=== PATIENT | female | born 1965 | race Two or more races ===

== ENCOUNTER 2019-06-09 19:37 | Emergency (ER) | payer OTHER ==
[~2019-06-09] VITALS: Ht 167.6 cm; Wt 90.7 kg
[2019-06-09] MEDS ORDERED: LORazepam 2MG/ML-1ML VIAL IV ONE (22:00)
[2019-06-09 22:18] LABS: Basophils # (auto) 0 uL; Basophils % (auto) 0.2 % (0.0-2.0); Eosinophils # (auto) 0 uL; Eosinophils % (auto) 0.2 % (0.0-7.0); Hematocrit 40.5 % (36.0-46.0); Hemoglobin 13.7 g/dL (12.2-16.2); Lymphocytes # (auto) 0.6 uL; Lymphocytes % (auto) 10.3 % (10.0-50.0); Mean Corpuscular Hemoglobin 27.8 pg (28.0-32.0); Mean Corpuscular Hgb Conc. 33.7 g/dL (32.0-36.0); Mean Corpuscular Volume 82.5 fL (80.0-100.0); Monocytes # (auto) 0.6 uL; Monocytes % (auto) 9.5 % (0.0-12.0); Neutrophils # (auto) 4.9 uL; Neutrophils % (auto) 79.8 % (37.0-80.0); Nucleated Red Blood Cells % 0.1 %; Platelet Count (auto) 242 10^3/uL (140-450); Red Blood Cells 4.91 10^6/uL (4.0-5.20); Red Cell Distribution Width 13.5 % (11.8-14.3); White Blood Cell 6.1 10^3/uL (4.4-10.8)
[2019-06-09 22:35] LABS: INR 1.13 (0.9-1.15); Partial Thromboplastin Time 30.2 sec (23.64-32.05)
[2019-06-09 22:38] LABS: Chloride 106 mmol/L (98-107); Potassium 3.8 mmol/L (3.5-5.1); Sodium 137 mmol/L (136-145)
[2019-06-09 22:48] LABS: Alanine Aminotransferase 62 U/L (13-56); Albumin 4.1 g/dL (3.4-5.0); Alkaline Phosphatase 99 U/L (45-117); Anion Gap 6 (5-15); Aspartate Aminotransferase 47 U/L (15-37); BUN/Creatinine Ratio 20.7; Bilirubin, Total 0.4 mg/dL (0.2-1.0); Blood Urea Nitrogen 18 mg/dL (7-18); Calcium 9.4 mg/dL (8.5-10.1); Carbon Dioxide 25 mmol/L (21-32); GFR African American 88 mL/min; GFR Non-African American 72 mL/min; Glucose 107 mg/dL (74-106); Magnesium 2.4 mg/dL (1.6-2.6); Total Protein 7.9 g/dL (6.4-8.2)
[2019-06-09] MEDS ORDERED: IOHEXOL 350 MG/ML 100ML IJ ONE (23:14)
[2019-06-09] MEDS ORDERED: ONDANSETRON HCL 4 MG/2 ML VIAL IV ONE (23:15)
[2019-06-09] MEDS ORDERED: MORPHINE SULFATE 4 MG/ML SYR/VIAL IV ONE (23:15)
[2019-06-09 23:54] LABS: Urine Bacteria FEW /hpf (None Seen); Urine Blood TRACE /uL (Negative); Urine Specific Gravity 1.011 (1.001-1.035); Urine WBC 1 /hpf (0 - 5)
[2019-06-10 02:30] VITALS: BP 149/73
== END 2019-06-10 02:49 | disposition home or self-care (01) ==
LOC: ER 19:40
DX: R07.89 Other chest pain (principal); K21.9 Gastro-esophageal reflux disease without esophagitis; R42 Dizziness and giddiness; R51 Headache; G89.4 Chronic pain syndrome; R79.1 Abnormal coagulation profile; Z90.710 Acquired absence of both cervix and uterus
CPT/HCPCS: 36415; 70450; 71046; 71275; 80053; 81001; 83735; 83880; 84443; 84484; 85025; 85379; 85610; 85730; 93005; 96374; 96375; 99284; J2060; J2270; J2405; Q9967

== ENCOUNTER → 2019-07-23 | Outpatient (CLI) | payer OTHER ==
[~2019-07-23] MED LIST: AML5T PO; FAM20T PO
== END | disposition home or self-care (01) ==
LOC: LAB 07:23
PROVIDERS: ATTEND Internal Medicine Nephrology
DX: R00.1 Bradycardia, unspecified (principal); R55 Syncope and collapse
CPT/HCPCS: 36415; 82565; 84520

== ENCOUNTER → 2019-12-19 | Outpatient (CLI) | payer OTHER ==
[~2019-12-19] MED LIST changes: -FAM20T PO; +FAMO20TA10 PO
[2019-12-19 08:19] LABS: Basophils # (auto) 0 10 ^3/uL (0-0.2); Basophils % (auto) 0.6 % (0.0-2.0); Eosinophils # (auto) 0.1 10 ^3/uL (0-0.8); Eosinophils % (auto) 1.5 % (0.0-7.0); Hemoglobin 13.2 g/dL (12.2-16.2); Lymphocytes # (auto) 2.3 10 ^3/uL (0.4-5.4); Lymphocytes % (auto) 38.2 % (10.0-50.0); Mean Corpuscular Hemoglobin 27.3 pg (28.0-32.0); Mean Corpuscular Hgb Conc. 32.9 g/dL (32.0-36.0); Mean Corpuscular Volume 83.1 fL (80.0-100.0); Monocytes # (auto) 0.4 10 ^3/uL (0-1.3); Neutrophils # (auto) 3.2 10 ^3/uL (1.6-8.6); Neutrophils % (auto) 52.7 % (37.0-80.0); Platelet Count (auto) 258 10^3/uL (140-450); Red Blood Cells 4.82 10^6/uL (4.0-5.20); Red Cell Distribution Width 13.7 % (11.8-14.3); White Blood Cell 6.1 10^3/uL (4.4-10.8)
[2019-12-19 08:40] LABS: Albumin 3.9 g/dL (3.4-5.0); Potassium 4.1 mmol/L (3.5-5.1)
[2019-12-19 08:47] LABS: BUN/Creatinine Ratio 18.6; Bilirubin, Total 0.6 mg/dL (0.2-1.0); Total Protein 7.4 g/dL (6.4-8.2)
== END | disposition home or self-care (01) ==
LOC: LAB 07:48
PROVIDERS: ATTEND Internal Medicine Nephrology
DX: E04.1 Nontoxic single thyroid nodule (principal); I10 Essential (primary) hypertension; I67.1 Cerebral aneurysm, nonruptured
CPT/HCPCS: 36415; 80053; 80061; 83036; 84439; 84443; 85025

== ENCOUNTER → 2020-01-02 | Emergency (ER) | payer OTHER ==
[~2020-01-02] VITALS: Ht 167.6 cm; Wt 90.7 kg
[~2020-01-02] MED LIST changes: +LORazepam 2MG/ML-1ML VIAL IV ONE
[2020-01-02 13:50] LABS: Basophils # (auto) 0.1 10 ^3/uL (0-0.2); Basophils % (auto) 1.1 % (0.0-2.0); Eosinophils # (auto) 0.1 10 ^3/uL (0-0.8); Eosinophils % (auto) 1.5 % (0.0-7.0); Hematocrit 41.1 % (36.0-46.0); Hemoglobin 13.4 g/dL (12.2-16.2); Lymphocytes # (auto) 2.5 10 ^3/uL (0.4-5.4); Mean Corpuscular Hemoglobin 27.6 pg (28.0-32.0); Mean Corpuscular Hgb Conc. 32.7 g/dL (32.0-36.0); Mean Corpuscular Volume 84.3 fL (80.0-100.0); Monocytes # (auto) 0.4 10 ^3/uL (0-1.3); Monocytes % (auto) 6.6 % (0.0-12.0); Neutrophils # (auto) 3.4 10 ^3/uL (1.6-8.6); Neutrophils % (auto) 52.8 % (37.0-80.0); Platelet Count (auto) 240 10^3/uL (140-450); Red Blood Cells 4.88 10^6/uL (4.0-5.20); Red Cell Distribution Width 13.9 % (11.8-14.3); White Blood Cell 6.5 10^3/uL (4.4-10.8)
[2020-01-02 13:56] LABS: INR 1.08 (0.9-1.15); Partial Thromboplastin Time 27.7 sec (23.0-31.2)
[2020-01-02 14:09] LABS: Alanine Aminotransferase 89 U/L (13-56); Albumin 3.7 g/dL (3.4-5.0); Anion Gap 6 (5-15); Aspartate Aminotransferase 58 U/L (15-37); BUN/Creatinine Ratio 17.1; Blood Urea Nitrogen 13 mg/dL (7-18); Calcium 9.2 mg/dL (8.5-10.1); Carbon Dioxide 23 mmol/L (21-32); Chloride 111 mmol/L (98-107); GFR African American 102 mL/min; GFR Non-African American 84 mL/min; Glucose 88 mg/dL (74-106); Potassium 4.5 mmol/L (3.5-5.1); Sodium 140 mmol/L (136-145)
[2020-01-02 14:15] LABS: Alkaline Phosphatase 94 U/L (45-117); Bilirubin, Total 0.4 mg/dL (0.2-1.0); Total Protein 7.5 g/dL (6.4-8.2)
[2020-01-02 16:12] VITALS: BP 148/84
== END | disposition home or self-care (01) ==
LOC: ER 13:22
DX: R07.89 Other chest pain (principal); F41.9 Anxiety disorder, unspecified; Z90.710 Acquired absence of both cervix and uterus
CPT/HCPCS: 36415; 71045; 80053; 83735; 84443; 84484; 85025; 85610; 85730; 93005; 96374; 99285; J2060

== ENCOUNTER → 2020-01-02 | Outpatient (CLI) | payer OTHER ==
[~2020-01-02] MED LIST changes: -LORazepam 2MG/ML-1ML VIAL IV ONE
--- NOTE | 2020-01-02 12:15 | NUR ---
PATIENT ARRIVED IN .S. DEPT FOR LEFT BREAST BIOPSY. BREAST BIOPSY COMPLETED AND BANDAIDS APPLIED TO BOTH 1:00 AND 3:00 SITES. AT COMPLETION OF BIOPSY PATIENT C/O DIZZINESS. ACCOUNT COLLECTOR ATTEMPTED TO CHECK BP BILAT ARMS WITH DIFFERENT BP CUFFS BUT UNABLE TO OBTAIN BP. HR 46-53 AND REGULAR. SAO2 94-95% ON RA. RELAXATION AND DEEP BREATHING ENCOURAGED - PATIENT COMPLIANT. PATIENT THEN C/O STERNAL CHEST PRESSURE/PAIN. O2 APPLIED AT 2L PER NC. ACCOUNT COLLECTOR NOTIFIED DR CHINCHILLA OF PATIENT'S COMPLAINTS. DR CHINCHILLA AT BEDSIDE. - RECOMMENDED THAT PATIENT BE TAKE TO ER FOR EVALUATION. 1330 ACCOUNT COLLECTOR AND PSYCHOLOGICAL EXAMINER TRANSPORTED PATIENT TO ER PER STRETCHER FOR EVALUATION. PATIENT ALERT AND ORIENTED X 4 AND NEURO WNL. ACCOUNT COLLECTOR REPORTED OFF TO VERONICA DICK IN ER WHO ASSUMED CARE OF PATIENT.
== END | disposition home or self-care (01) ==
LOC: US 10:55
PROVIDERS: ATTEND Internal Medicine Nephrology
DX: N63.21 Unspecified lump in the left breast, upper outer quadrant (principal); D24.2 Benign neoplasm of left breast; F41.9 Anxiety disorder, unspecified; Z90.710 Acquired absence of both cervix and uterus; Z98.890 Other specified postprocedural states; Z79.899 Other long term (current) drug therapy
CPT/HCPCS: 19083; 19084; 88305; J2001; 10022; 76942

== ENCOUNTER 2020-04-02 02:38 | Emergency (ER) | payer OTHER ==
[~2020-04-02] VITALS: Ht 167.6 cm; Wt 99.8 kg
[2020-04-02 03:06] VITALS: BP 137/73
[2020-04-02 03:44] LABS: Basophils # (auto) 0 10 ^3/uL (0-0.2); Basophils % (auto) 0.5 % (0.0-2.0); Eosinophils # (auto) 0.1 10 ^3/uL (0-0.8); Eosinophils % (auto) 1.2 % (0.0-7.0); Hemoglobin 14.2 g/dL (12.2-16.2); Lymphocytes # (auto) 3.6 10 ^3/uL (0.4-5.4); Mean Corpuscular Hemoglobin 27.6 pg (28.0-32.0); Mean Corpuscular Hgb Conc. 33.1 g/dL (32.0-36.0); Mean Corpuscular Volume 83.4 fL (80.0-100.0); Monocytes # (auto) 0.6 10 ^3/uL (0-1.3); Monocytes % (auto) 6.9 % (0.0-12.0); Neutrophils # (auto) 4.1 10 ^3/uL (1.6-8.6); Neutrophils % (auto) 48.4 % (37.0-80.0); Nucleated Red Blood Cells % 0.1 %; Platelet Count (auto) 281 10^3/uL (140-450); Red Blood Cells 5.15 10^6/uL (4.0-5.20); Red Cell Distribution Width 13.8 % (11.8-14.3); White Blood Cell 8.4 10^3/uL (4.4-10.8)
[2020-04-02 04:01] LABS: Urine Bacteria FEW /hpf (None Seen); Urine Blood TRACE /uL (Negative); Urine Specific Gravity 1.008 (1.001-1.035); Urine WBC 6 /hpf (0 - 5)
[2020-04-02 04:03] LABS: Partial Thromboplastin Time 27.7 sec (23.0-31.2); Potassium 3.3 mmol/L (3.5-5.1)
[2020-04-02 04:12] LABS: BUN/Creatinine Ratio 19.8; Bilirubin, Total 0.2 mg/dL (0.2-1.0); Calcium 8.8 mg/dL (8.5-10.1); Total Protein 7.6 g/dL (6.4-8.2)
[2020-04-02] MEDS ORDERED: LEVO50TA7 PO (17:19)
[2020-04-02] MEDS ORDERED: CHOL20007 PO (17:20)
[2020-04-02] MEDS ORDERED: HYDR12.56 PO (17:20)
[2020-04-02] MEDS ORDERED: AMLO5TAB15 PO (18:48)
[2020-04-02] MEDS ORDERED: AMLO10TA13 PO (18:48)
== END 2020-04-02 05:00 | disposition left against medical advice (07) ==
LOC: ER 02:46
DX: R07.89 Other chest pain (principal); R42 Dizziness and giddiness; Z53.21 Procedure and treatment not carried out due to patient leaving prior to being seen by health care provider
CPT/HCPCS: 36415; 80053; 81001; 83880; 84484; 85025; 85610; 85730

== ENCOUNTER 2020-04-02 12:37 | Inpatient (IN) | payer OTHER ==
[~2020-04-02] VITALS: Ht 162.6 cm; Wt 111.5 kg
[2020-04-02] MEDS ORDERED: NITROGLYCERIN 0.4 MG SL TAB SL PRN (15:15)
[2020-04-02] MEDS ORDERED: PROMETHAZINE HCL 25 MG/ML 1ML IV PRN (15:45)
[2020-04-02] MEDS ORDERED: SOD CHL 0.9%/ KCL 40MEQ 1,000 ML IV SCH (15:45)
[2020-04-02] MEDS ORDERED: TEMAZEPAM 15 MG CAP PO PRN (15:45)
[2020-04-02] MEDS ORDERED: traMADol HCL 50 MG TAB PO PRN (15:45)
[2020-04-02] MEDS ORDERED: LACTULOSE 20Gm/30ML SOLN PO PRN (15:45)
[2020-04-02 17:10] VITALS: BP 98/74
[2020-04-02] MEDS ORDERED: LEVO50TA7 PO (17:19)
[2020-04-02] MEDS ORDERED: CHOL20007 PO (17:20)
[2020-04-02] MEDS ORDERED: HYDR12.56 PO (17:20)
[2020-04-02 17:21] VITALS: BP 98/74
[2020-04-02] MEDS ORDERED: AMLO5TAB15 PO (18:48)
[2020-04-02] MEDS ORDERED: AMLO10TA13 PO (18:48)
--- NOTE | 2020-04-02 20:34 | NUR ---
Opening Shift Note Received report from luis Stephens RN. Assumed care of patient, awake and alert. No S/S of distress/SOB or pain. Patient states she is just tired. Provided extra blankets per request. Instructed on POC and to call for assist PRN, will continue to monitor for changes Q1hr and PRN. Bed placed in lowest position and call light within reach.
[2020-04-02 22:00] VITALS: BP 132/71
[2020-04-02] MEDS: CARVEDILOL 3.125 MG TAB PO SCH (22:17)
[2020-04-02] MEDS: FAMOTIDINE 20 MG TAB PO SCH (22:17)
--- NOTE | 2020-04-03 00:30 | NUR ---
Supplies and hygiene supplies provided.
[2020-04-03 02:01] LABS: Creatine Kinase IFCC 134 U/L (26-192)
--- NOTE | 2020-04-03 04:18 | NUR ---
Report given to MAYELIN Wild. Patient is moving to Room 88A r/t negative covid test.
--- NOTE | 2020-04-03 04:50 | NUR ---
Patient transferred to [facility] with all personal belongings. No distress noted at transfer.
--- NOTE | 2020-04-03 04:52 | NUR ---
Assumed care of patient. Patient has no complaints at this time. Will continue to monitor Q1 and PRN. Safety precautions in place.
[2020-04-03 05:10] LABS: Basophils # (auto) 0 10 ^3/uL (0-0.2); Basophils % (auto) 0.4 % (0.0-2.0); Eosinophils # (auto) 0.1 10 ^3/uL (0-0.8); Eosinophils % (auto) 1.6 % (0.0-7.0); Hematocrit 40.6 % (36.0-46.0); Hemoglobin 13.4 g/dL (12.2-16.2); Lymphocytes # (auto) 2.8 10 ^3/uL (0.4-5.4); Lymphocytes % (auto) 43.5 % (10.0-50.0); Mean Corpuscular Hemoglobin 27.6 pg (28.0-32.0); Mean Corpuscular Hgb Conc. 33.1 g/dL (32.0-36.0); Mean Corpuscular Volume 83.5 fL (80.0-100.0); Monocytes # (auto) 0.4 10 ^3/uL (0-1.3); Monocytes % (auto) 6.2 % (0.0-12.0); Neutrophils # (auto) 3.1 10 ^3/uL (1.6-8.6); Neutrophils % (auto) 48.3 % (37.0-80.0); Nucleated Red Blood Cells % 0.1 %; Platelet Count (auto) 272 10^3/uL (140-450); Red Blood Cells 4.87 10^6/uL (4.0-5.20); Red Cell Distribution Width 13.6 % (11.8-14.3); White Blood Cell 6.4 10^3/uL (4.4-10.8)
[2020-04-03 05:22] LABS: Albumin 3.7 g/dL (3.4-5.0); Anion Gap 4 (5-15); Blood Urea Nitrogen 19 mg/dL (7-18); Calcium 9.3 mg/dL (8.5-10.1); Carbon Dioxide 29 mmol/L (21-32); Chloride 108 mmol/L (98-107); Glucose 101 mg/dL (74-106); Potassium 3.5 mmol/L (3.5-5.1); Sodium 141 mmol/L (136-145)
[2020-04-03 05:26] LABS: Alanine Aminotransferase 69 U/L (13-56); Alkaline Phosphatase 104 U/L (45-117); Aspartate Aminotransferase 43 U/L (15-37); BUN/Creatinine Ratio 20.9; Bilirubin, Total 0.3 mg/dL (0.2-1.0); CRP High Sensitivity 0.12 mg/dL (< 0.3); Cholesterol 187 mg/dL (< 200); GFR African American 83 mL/min; GFR Non-African American 68 mL/min; HDL Cholesterol 59 mg/dL (40-59); LDL Cholesterol 121 mg/dL (< 100); Total Protein 7.1 g/dL (6.4-8.2); Triglycerides 78 mg/dL (< 150)
--- NOTE | 2020-04-03 07:10 | NUR ---
OPENING SHIFT NOTE ASSUMED CARE FROM LIFE EDUCATOR RN DANUTA. PATIENT IS AWAKE, ALERT, AND ORIENTED X4. PATIENT HAS NO S/S OF DISTRESS/SOB OR PAIN. INSTRUCTED PATIENT ON POC, PATIENT VERBALIZED UNDERSTANDING. BED IS IN LOWEST POSITION WITH SIDE RAILS RAISED X2, BED WHEELS LOCKED, AND CALL LIGHT IS WITHIN REACH. WILL CONTINUE TO MONITOR.
--- NOTE | 2020-04-03 07:32 | NUR ---
End of Shift Note Endorsed care to dayshift RN. At this time patient has no s/s of distress or SOB.
[2020-04-03 08:00] VITALS: BP 148/84
[2020-04-03 09:00] VITALS: BP 148/84
--- NOTE | 2020-04-03 09:00 | NUR ---
ELECTRICAL CONTINUITY TESTER RUDY AT BEDSIDE UPDATED ELECTRICAL CONTINUITY TESTER ON PATIENT'S STATUS. ELECTRICAL CONTINUITY TESTER IS AWARE AND PER ELECTRICAL CONTINUITY TESTER, PATIENT CAN FOLLOW UP OUTPATIENT FOR ECHOCARDIOGRAM AND STRESS TEST.
[2020-04-03] MEDS: FAMOTIDINE 20 MG TAB PO SCH ×2 (09:04→22:35)
[2020-04-03] MEDS: CARVEDILOL 3.125 MG TAB PO SCH ×2 (09:06→22:00)
[2020-04-03] MEDS: NITROGLYCERIN 0.2MG/HR TOPICAL PATCH TD SCH (09:07)
[2020-04-03] MEDS: ENOXAPARIN SOD 40 MG/0.4 ML SYRINGE SC SCH (09:08)
[2020-04-03] MEDS ORDERED: ASPirin 81 mg TAB PO SCH (10:00)
[2020-04-03 10:06] LABS: Alcohol, Urine < 3.0 mg/dL (0-10); Amphetamine Screen, Urine NEGATIVE (NEGATIVE); Barbiturate Scree,Urine NEGATIVE (NEGATIVE); Benzodiazephine Screen, Urine NEGATIVE (NEGATIVE); Cannabinoid Screen, Urine NEGATIVE (NEGATIVE); Cocaine Screen, Urine NEGATIVE (NEGATIVE); Opiate Scree,Urine NEGATIVE (NEGATIVE); Phencyclidine Screen, Urine NEGATIVE (NEGATIVE)
[2020-04-03 13:00] VITALS: BP 131/89
[2020-04-03 17:00] VITALS: BP 135/86
[2020-04-03] MEDS ORDERED: LOSARTAN POTASSIUM 50 MG TAB PO ONE (18:30)
[2020-04-03] MEDS ORDERED: PANTOPRAZOLE 40 MG TAB PO ONE (18:30)
[2020-04-03] MEDS ORDERED: LEVOTHYROXINE SODIUM 50 MCG TAB PO ONE (18:30)
[2020-04-03] MEDS: MORPHINE SULF INJ 2 MG/ML SYRINGE 1ML IV PRN ×2 (18:53→19:43)
--- NOTE | 2020-04-03 18:56 | NUR ---
CLOSING SHIFT NOTE PATIENT HAS NO S/S OF DISTRESS/SOB OR PAIN AT THIS TIME. WILL ENDORSE CARE TO SUPERVISOR LENS GENERATING MAYELIN TIPTON.
--- NOTE | 2020-04-03 20:50 | NUR ---
Berenice hospitalist Spoke with hospitalist and informed him that patient has unrelieved chest pain after x2 2mg Morphine sulfate doses. 12 lead ECG done, Vital Signs: BP 124/75 HR 67 RR 18 SPO2 98%. Patient placed on 2L NC. New orders received, read back and verified, will carry out. Will continue to monitor patient Q1 and PRN.
[2020-04-03 22:00] VITALS: BP 118/56
[2020-04-03 22:58] LABS: Basophils # (auto) 0 10 ^3/uL (0-0.2); Basophils % (auto) 0.5 % (0.0-2.0); Eosinophils # (auto) 0.1 10 ^3/uL (0-0.8); Eosinophils % (auto) 2.3 % (0.0-7.0); Hematocrit 40.3 % (36.0-46.0); Hemoglobin 13.2 g/dL (12.2-16.2); Lymphocytes # (auto) 2.6 10 ^3/uL (0.4-5.4); Lymphocytes % (auto) 41.2 % (10.0-50.0); Mean Corpuscular Hemoglobin 27.3 pg (28.0-32.0); Mean Corpuscular Hgb Conc. 32.8 g/dL (32.0-36.0); Mean Corpuscular Volume 83.1 fL (80.0-100.0); Monocytes # (auto) 0.5 10 ^3/uL (0-1.3); Neutrophils # (auto) 3.1 10 ^3/uL (1.6-8.6); Nucleated Red Blood Cells % 0.1 %; Platelet Count (auto) 261 10^3/uL (140-450); Red Blood Cells 4.84 10^6/uL (4.0-5.20); Red Cell Distribution Width 13.6 % (11.8-14.3); White Blood Cell 6.4 10^3/uL (4.4-10.8)
[2020-04-03 23:28] LABS: Magnesium 2.4 mg/dL (1.6-2.6)
[2020-04-04] MEDS: MORPHINE SULF INJ 2 MG/ML SYRINGE 1ML IV PRN (01:33)
[2020-04-04 05:00] VITALS: BP 120/64
[2020-04-04] MEDS: LEVOTHYROXINE SODIUM 50 MCG TAB PO SCH (06:49)
--- NOTE | 2020-04-04 07:04 | NUR ---
End of Shift Note Will endorse care to dayshift RN. At this time patient has no s/s of distress or SOB.
--- NOTE | 2020-04-04 07:23 | NUR ---
OPENING SHIFT NOTE ASSUMED CARE FROM EDGE TRIMMER RN DANUTA. PATIENT IS AWAKE, ALERT, AND ORIENTED X4. PATIENT HAS NO S/S OF DISTRESS/SOB OR PAIN. INSTRUCTED PATIENT ON POC, PATIENT VERBALIZED UNDERSTANDING. BED IS IN LOWEST POSITION WITH SIDE RAILS RAISED X2, BED WHEELS LOCKED, AND CALL LIGHT IS WITHIN REACH. WILL CONTINUE TO MONITOR.
[2020-04-04 09:00] VITALS: BP 112/72
[2020-04-04] MEDS ORDERED: LOSARTAN POTASSIUM 50 MG TAB PO SCH (10:00)
[2020-04-04] MEDS: NITROGLYCERIN 0.2MG/HR TOPICAL PATCH TD SCH (10:00)
[2020-04-04] MEDS: FAMOTIDINE 20 MG TAB PO SCH (10:00)
[2020-04-04] MEDS: ASPirin 81 mg TAB PO SCH (10:39)
--- NOTE | 2020-04-04 10:45 | NUR ---
MD GALLAGHER AT BEDSIDE UPDATED MD ON PATIENT'S STATUS INCLUDING HOLDING LOSARTAN AND NITROGLYCERIN DUE TO LOW BLOOD PRESSURE. INFORMED MD PEPCID WAS ALSO HELD BECAUSE PROTONIX WAS GIVEN. MD WANTS NITROGLYCERIN AND PEPCID TO BE STOPPED AND HOLD LOSARTAN AND CARVEDILOL IF SBP <120 mmHg AND HEART RATE <60 BPM. WILL FOLLOW THROUGH WITH ORDERS.
[2020-04-04] MEDS: CARVEDILOL 3.125 MG TAB PO SCH ×2 (10:46→22:41)
[2020-04-04] MEDS: PANTOPRAZOLE 40 MG TAB PO SCH (10:46)
[2020-04-04] MEDS: ENOXAPARIN SOD 40 MG/0.4 ML SYRINGE SC SCH (10:47)
[2020-04-04 13:00] VITALS: BP 102/45
[2020-04-04] MEDS: IBUPROFEN 400 MG TAB PO SCH ×2 (16:45→17:47)
[2020-04-04 17:00] VITALS: BP 122/64
--- NOTE | 2020-04-04 18:46 | NUR ---
CLOSING SHIFT NOTE PATIENT HAS NO S/S OF DISTRESS/SOB OR PAIN AT THIS TIME. WILL ENDORSE CARE TO CHILD SUPPORT OFFICER MAYELIN PEDROZA.
--- NOTE | 2020-04-04 20:00 | NUR ---
open note assumed care of pt. upon entering room pt awake and alert on room air with no distress noted or expressed. pt denied any pain. pt oriented to this nurse and updated on plan of care. pt bed locked, low and 2x rails up. call light in reach, this nurse encouraged pt to call as needed. will round q1hr and prn.
[2020-04-04] MEDS: ATORVASTATIN 20 MG TAB PO SCH (22:40)
[2020-04-05] VITALS (7 sets, daily range): BP systolic 95–143; BP diastolic 53–74
[2020-04-05] MEDS: MORPHINE SULF INJ 2 MG/ML SYRINGE 1ML IV PRN ×2 (02:00→20:24)
[2020-04-05] MEDS: LEVOTHYROXINE SODIUM 50 MCG TAB PO SCH (06:48)
--- NOTE | 2020-04-05 07:08 | NUR ---
OPENING SHIFT NOTE ASSUMED CARE FROM MANAGER INTEL RN KASIA. PATIENT IS AWAKE, ALERT, AND ORIENTED X4. PATIENT HAS NO S/S OF DISTRESS/SOB OR PAIN. INSTRUCTED PATIENT ON POC, PATIENT VERBALIZED UNDERSTANDING. BED IS IN LOWEST POSITION WITH SIDE RAILS RAISED X2, BED WHEELS LOCKED, AND CALL LIGHT IS WITHIN REACH. WILL CONTINUE TO MONITOR.
[2020-04-05] MEDS: CARVEDILOL 3.125 MG TAB PO SCH ×2 (10:00→21:39)
[2020-04-05] MEDS: LOSARTAN POTASSIUM 50 MG TAB PO SCH (10:00)
[2020-04-05] MEDS: IBUPROFEN 400 MG TAB PO SCH (10:00)
[2020-04-05] MEDS: ENOXAPARIN SOD 40 MG/0.4 ML SYRINGE SC SCH (10:03)
[2020-04-05] MEDS: PANTOPRAZOLE 40 MG TAB PO SCH (10:03)
[2020-04-05] MEDS: ASPirin 81 mg TAB PO SCH (10:03)
--- NOTE | 2020-04-05 11:17 | NUR ---
SPOKE WITH DR. GALLAGHER INFORMED HER PATIENT HAS BEEN REFUSING IBUPROFEN. PER MD ALVARENGA IBUPROFEN. WILL FOLLOW THROUGH WITH ORDERS.
--- NOTE | 2020-04-05 11:59 | NUR ---
Nutrition Assessment Est energy needs 4190-1013 kcal (14-18 kcal/kg BW 104.7kg) est protein needs 55-71g (1-1.3g/kg IBW 54.5kg) will monitor and reassess prn. Addendum: 04/05/20 at [address] Amended: Links added.
--- NOTE | 2020-04-05 19:55 | NUR ---
Opening Shift Note Assumed care of patient, awake and alert. No S/S of distress/SOB or pain. Instructed on POC and to call for assist PRN, will continue to monitor for changes Q1hr and PRN.
[2020-04-05] MEDS: ATORVASTATIN 20 MG TAB PO SCH (21:39)
[2020-04-06 05:00] VITALS: BP 113/70
[2020-04-06] MEDS: LEVOTHYROXINE SODIUM 50 MCG TAB PO SCH (06:16)
[2020-04-06 08:09] LABS: Basophils # (auto) 0 10 ^3/uL (0-0.2); Basophils % (auto) 0.4 % (0.0-2.0); Eosinophils # (auto) 0.1 10 ^3/uL (0-0.8); Eosinophils % (auto) 1.9 % (0.0-7.0); Hematocrit 37.8 % (36.0-46.0); Hemoglobin 12.1 g/dL (12.2-16.2); Lymphocytes # (auto) 3.1 10 ^3/uL (0.4-5.4); Lymphocytes % (auto) 44.6 % (10.0-50.0); Mean Corpuscular Hemoglobin 27.2 pg (28.0-32.0); Mean Corpuscular Hgb Conc. 32.1 g/dL (32.0-36.0); Mean Corpuscular Volume 84.6 fL (80.0-100.0); Monocytes # (auto) 0.5 10 ^3/uL (0-1.3); Neutrophils # (auto) 3.2 10 ^3/uL (1.6-8.6); Neutrophils % (auto) 46.1 % (37.0-80.0); Nucleated Red Blood Cells % 0.1 %; Platelet Count (auto) 228 10^3/uL (140-450); Red Blood Cells 4.47 10^6/uL (4.0-5.20)
[2020-04-06 08:25] LABS: INR 1.05 (0.9-1.15); Partial Thromboplastin Time 27.6 sec (23.0-31.2)
[2020-04-06] MEDS: ENOXAPARIN SOD 40 MG/0.4 ML SYRINGE SC SCH (08:30)
[2020-04-06] MEDS: ASPirin 81 mg TAB PO SCH (08:30)
[2020-04-06 08:36] LABS: Albumin 3.2 g/dL (3.4-5.0); Potassium 4.2 mmol/L (3.5-5.1)
[2020-04-06 08:40] LABS: BUN/Creatinine Ratio 23.6; Bilirubin, Total 0.3 mg/dL (0.2-1.0); Total Protein 6.3 g/dL (6.4-8.2)
[2020-04-06 09:00] VITALS: BP 134/76
[2020-04-06] MEDS: CARVEDILOL 3.125 MG TAB PO SCH (10:00)
[2020-04-06] MEDS: PANTOPRAZOLE 40 MG TAB PO SCH (10:08)
[2020-04-06] MEDS: LOSARTAN POTASSIUM 50 MG TAB PO SCH (10:11)
[2020-04-06] MEDS: MORPHINE SULF INJ 2 MG/ML SYRINGE 1ML IV PRN (10:15)
--- NOTE | 2020-04-06 12:09 | NUR ---
PATIENT TAKEN DOWN TO SPORTS MARKETING COORDINATOR VIA BED. PATIENT HAS NO S/S OF DISTRESS/SOB OR PAIN AT THIS TIME. REPORT GIVEN TO SPORTS MARKETING COORDINATOR MAYELIN PARDO.
[2020-04-06] MEDS ORDERED: LIDOCAINE 2%HCL (LOCAL ANESTH.) INJ 20ML MDV ONE (13:42)
[2020-04-06] MEDS ORDERED: IODIXANOL 320MG/ML 100ML BTL IV ONE (13:43)
[2020-04-06] MEDS ORDERED: ANGIOMAX 250 MG VIAL IV ONE (13:44)
[2020-04-06] MEDS ORDERED: VERAPAMIL 2.5MG/ML INJ 2ML VIAL IV ONE (13:44)
[2020-04-06] MEDS ORDERED: HEPARIN SODIUM (PORCINE) 5000 UNITS/ML 1ML VIAL ONE (13:44)
[2020-04-06] MEDS ORDERED: SODIUM CHL 0.9% 0 ML ONE (13:45)
[2020-04-06] MEDS ORDERED: MIDAZOLAM HCL 1MG/1ML-2 ML VIAL ONE (13:45)
[2020-04-06] MEDS ORDERED: fentaNYL CITRATE 100 MCG/2 ML VL ONE (13:45)
[2020-04-06] MEDS ORDERED: POTA10TA51 PO (14:41)
--- NOTE | 2020-04-06 15:21 | NUR ---
Report received from KUN CARPENTER brought to bed 288B following left Cardiac catheterization, on director of development and marketing and portable oxygen. Patient transfered to unit bed, connected to news photographer #[id number] and oxygen. Catheterization site assessed for any bleeding, redness or swelling. Vascband device in place. Pedal pulses on affected leg assessed for positive tissue perfusion. Patient instructed on need to notify staff immediately if any pain, burning or wetness to site, and any lower back pain. Patient educated on new cardiac medications. All questions and concerns addressed, patient verbalized understanding of all education and instruction. See notes for any further.
--- NOTE | 2020-04-06 15:44 | NUR ---
Pt is an alert and oriented female who is pleasant and easily engageable in communication. Pt states she resides with multiple family members. 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 Pt states she functions independently and uses no medical equipment. Pt states she has transportation home and has no SS concerns or needs. Addendum: 04/06/20 at 1547 by JADIEL CALVIN SS Amended: Links added.
[2020-04-06 15:49] VITALS: BP 119/76
--- NOTE | 2020-04-06 16:04 | NUR ---
2 ML RELEASED FROM VASC BAND DEVICE. NO BLEEDING AT SITE.
--- NOTE | 2020-04-06 16:20 | NUR ---
2 ML RELEASED FROM VASC BAND DEVICE. NO BLEEDING AT SITE.
--- NOTE | 2020-04-06 16:30 | NUR ---
2 ML RELEASED FROM VASC BAND DEVICE. NO BLEEDING AT SITE.
--- NOTE | 2020-04-06 16:45 | NUR ---
2 ML RELEASED FROM VASC BAND DEVICE. NO BLEEDING AT SITE.
[2020-04-06 17:00] VITALS: BP 126/69
--- NOTE | 2020-04-06 17:00 | NUR ---
2 ML RELEASED FROM VASC BAND DEVICE. NO BLEEDING AT SITE.
--- NOTE | 2020-04-06 17:13 | NUR ---
2 ML RELEASED FROM VASC BAND DEVICE. NO BLEEDING AT SITE.
--- NOTE | 2020-04-06 17:20 | NUR ---
VASC BAND COMPLETED DEFLATED. TEGADERM AND GAUZE APPLIED TO RIGHT WRIST.
--- NOTE | 2020-04-06 18:29 | NUR ---
Discharge instructions given as ordered. Encourage to follow up with PMD as instructed. All questions and concerns addressed. Patient verbalized understanding. Medication reconciliation form completed and copy given to patient. IV removed with catheter intact, pressure dressing applied. Telemetry unit returned to ICU. Patient taken to vehicle via wheelchair with all personal belongings, accompanied by staff. No distress noted at time of departure.
== END 2020-04-06 18:31 | disposition home or self-care (01) | DRG 287 ==
LOC: ER 12:37 → EDUNIT# 12:37 → TELE-EAST 12:38 → TELE-WESTW 16:56
PROVIDERS: ADMIT Internal Medicine; ATTEND Internal Medicine Nephrology
PROC: 4A023N7 Measurement of Cardiac Sampling and Pressure, Left Heart, Percutaneous Approach (ICD-10-PCS; principal; 2020-04-06)
PROC: B2111ZZ Fluoroscopy of Multiple Coronary Arteries using Low Osmolar Contrast (ICD-10-PCS; 2020-04-06)
PROC: B2151ZZ Fluoroscopy of Left Heart using Low Osmolar Contrast (ICD-10-PCS; 2020-04-06)
DX: R07.89 Other chest pain (principal); I50.32 Chronic diastolic (congestive) heart failure; Z68.41 Body mass index [BMI] 40.0-44.9, adult; E03.9 Hypothyroidism, unspecified; E66.01 Morbid (severe) obesity due to excess calories; I67.1 Cerebral aneurysm, nonruptured; E78.5 Hyperlipidemia, unspecified; I11.0 Hypertensive heart disease with heart failure; E04.1 Nontoxic single thyroid nodule; Z20.828 Contact with and (suspected) exposure to other viral communicable diseases; Z80.0 Family history of malignant neoplasm of digestive organs; Z82.0 Family history of epilepsy and other diseases of the nervous system; Z82.49 Family history of ischemic heart disease and other diseases of the circulatory system; Z83.3 Family history of diabetes mellitus; Z86.73 Personal history of transient ischemic attack (TIA), and cerebral infarction without residual deficits; Z90.711 Acquired absence of uterus with remaining cervical stump; Z91.19 Patient's noncompliance with other medical treatment and regimen; Z90.710 Acquired absence of both cervix and uterus; Z91.14 Patient's other noncompliance with medication regimen; Z79.899 Other long term (current) drug therapy
CPT/HCPCS: 36415; 71045; 76536; 80053; 80061; 80307; 82550; 83735; 83880; 84075; 84443; 84484; 85025; 85379; 85610; 85652; 85730; 86141; 86850; 86900; 86901; 87426; 93005; 93306; 93458; 99152; G0378; J2250; Q9967

== ENCOUNTER 2021-02-11 18:47 | Emergency (ER) | payer MEDICAID, OTHER ==
[~2021-02-11] VITALS: Ht 167.6 cm; Wt 90.7 kg
[~2021-02-11 18:47] MED LIST changes: -AML5T PO; +AMLO-496 PO; +CHOL20007 PO; +HYDR12.56 PO; +LEVO50TA7 PO; +POTA10TA51 PO
[2021-02-11 19:53] VITALS: BP 151/93
== END 2021-02-11 20:52 | disposition home or self-care (01) ==
LOC: ER 18:47
DX: S63.502A Unspecified sprain of left wrist, initial encounter (principal); S63.501A Unspecified sprain of right wrist, initial encounter; S83.91XA Sprain of unspecified site of right knee, initial encounter; S83.92XA Sprain of unspecified site of left knee, initial encounter; E66.9 Obesity, unspecified; Z68.32 Body mass index [BMI] 32.0-32.9, adult; I10 Essential (primary) hypertension; I25.10 Atherosclerotic heart disease of native coronary artery without angina pectoris; Z86.73 Personal history of transient ischemic attack (TIA), and cerebral infarction without residual deficits; Z90.710 Acquired absence of both cervix and uterus; Z79.899 Other long term (current) drug therapy; W18.39XA Other fall on same level, initial encounter; Y93.89 Activity, other specified; Y92.89 Other specified places as the place of occurrence of the external cause; Y99.8 Other external cause status
CPT/HCPCS: 73110; 73562

== ENCOUNTER 2023-07-18 18:21 | Emergency (ER) | payer MEDICAID ==
[~2023-07-18] VITALS: Ht 170.2 cm; Wt 100.1 kg
[~2023-07-18 18:21] MED LIST changes: -AMLO-496 PO; +AMLO1TAB23 PO; -HYDR12.56 PO; +HYDR12.59 PO
[2023-07-18 18:22] VITALS: BP 157/75; RESP 16; O2SAT 98
[2023-07-18 21:14] VITALS: PULSE 56
[2023-07-18 21:57] LABS: Basophils # (auto) 0 10 ^3/uL (0-0.2); Basophils % (auto) 0.6 % (0.0-2.0); Eosinophils # (auto) 0.1 10 ^3/uL (0-0.8); Hemoglobin 13.1 g/dL (12.2-16.2); Lymphocytes # (auto) 2.9 10 ^3/uL (0.4-5.4); Mean Corpuscular Hemoglobin 27.3 pg (28.0-32.0); Mean Corpuscular Hgb Conc. 32.8 g/dL (32.0-36.0); Mean Corpuscular Volume 83.2 fL (80.0-100.0); Monocytes # (auto) 0.4 10 ^3/uL (0-1.3); Monocytes % (auto) 5.9 % (0.0-12.0); Neutrophils # (auto) 3.4 10 ^3/uL (1.6-8.6); Neutrophils % (auto) 49.5 % (37.0-80.0); Red Blood Cells 4.81 10^6/uL (4.0-5.20); Red Cell Distribution Width 13.8 % (11.8-14.3); White Blood Cell 6.9 10^3/uL (4.4-10.8)
[2023-07-18 22:07] LABS: Chloride 108 mmol/L (98-107); Potassium 3.6 mmol/L (3.5-5.1); Sodium 142 mmol/L (136-145)
[2023-07-18 22:08] LABS: Anion Gap 7 (5-15); Calcium 9.7 mg/dL (8.5-10.1); Carbon Dioxide 27 mmol/L (20-30)
[2023-07-18 22:13] LABS: BUN/Creatinine Ratio 17.5 (10.0-20.0); Blood Urea Nitrogen 14 mg/dL (9-23); Glucose 96 mg/dL (74-106)
[2023-07-18 22:22] LABS: Urine Bacteria MANY /hpf (None Seen); Urine Blood Negative /uL (Negative); Urine Clarity Clear (Clear); Urine Color Colorless (Yellow); Urine Mucus FEW (None Seen); Urine Protein, UAD Negative (Negative); Urine Specific Gravity 1.018 (1.001-1.035); Urine Urobilinogen Normal (Negative); Urine WBC 2 /hpf (0 - 5)
[2023-07-18] MEDS ORDERED: NITR-52 PO (22:40)
[2023-07-18] MEDS: KETOROLAC TROMETH 60MG/2ML VIAL IM ONE (22:49)
== END 2023-07-18 22:58 | disposition home or self-care (01) ==
LOC: ER 18:21
DX: M79.18 Myalgia, other site (principal); N39.0 Urinary tract infection, site not specified; R42 Dizziness and giddiness; R51.9 Headache, unspecified; R07.89 Other chest pain; I10 Essential (primary) hypertension; Z86.73 Personal history of transient ischemic attack (TIA), and cerebral infarction without residual deficits; Z90.710 Acquired absence of both cervix and uterus
CPT/HCPCS: 36415; 70450; 71045; 80048; 81001; 83880; 84484; 85025; 93005; 96372; 99285; J1885